=== PATIENT | female | born 1990 | race Caucasian/White ===

== ENCOUNTER → 2018-05-12 17:46 | Outpatient (CLI) | payer OTHER, SELFPAY ==
[2018-05-12 17:49] LABS: Mucous, Urine 0 SEEN /hpf (<or=2+)
[2018-05-12 19:45] LABS: Color, Urine Yellow (Yellow); Glucose, Dipstick Normal (Normal); Ketone-Dipstick Negative (Negative); Leukocyte Esterase-Dipstick 25 /ul (Negative); Nitrite-Dipstick Negative (Negative); Occult Blood-Urine 10 /ul (Negative); Protein-Dipstick Negative (Negative); Urine Bilirubin Dipstick Negative (Negative); Urine Clarity Cloudy (Clear); Urine Urobilinogen Normal (Normal)
[2018-05-12 19:46] LABS: Bacteria RARE /hpf (None Seen); Red Blood Cells-Urine 0-5 SEEN /hpf (0-5); Squamous Epithelial Cells - UA 0-5 SEEN /hpf (5-10); White Blood Cells 5-10 SEEN /hpf (0-5)
== END ==
PROVIDERS: Visit Provider Nurse Practitioner Adult Health
DX: N30.20 Other chronic cystitis without hematuria (principal)
CPT/HCPCS: 81001; 87086; 87088

== ENCOUNTER → 2018-05-17 10:31 | Outpatient (CLI) | payer OTHER, SELFPAY ==
--- NOTE | 2018-05-17 10:50 | RAD_ITS ---
CLINICAL HISTORY: Female, 28 years old. Recurrent UTI. Microhematuria. Urosepsis. PROCEDURE: Retrograde cystogram. FLUOROSCOPY TIME (if supplied): (1:01) minutes/seconds 250 mL of contrast installed into the bladder in a retrograde fashion through Hoover catheter. The radiologist installed the contrast into the bladder. TECHNIQUE: (All elements of maximal sterile barrier technique followed, including US elements as applicable) Contrast was introduced through the Hoover catheter. The bladder was opacified. During voiding, there is evidence of a bilateral vesicoureteral reflux to the distal one third of the ureters bilaterally. RAD/Voiding Urethrocystography IMPRESSION: Bilateral vesicoureteral reflux to the distal third of the ureters bilaterally. Electronically Signed: Christopher Perez MD at 8:37 EDT Tel [phone], Service support ,
--- NOTE | 2018-05-17 15:20 | NURSING ---
1100 16 maori crisostomo inserted for cystogram, urine obtained, sterile technique used, patient tolerated well, removed after the test was complete
== END ==
PROVIDERS: Family Provider Nurse Practitioner Primary Care; PCP Nurse Practitioner Primary Care; Visit Provider Nurse Practitioner Adult Health
DX: N39.0 Urinary tract infection, site not specified (principal); Z87.440 Personal history of urinary (tract) infections; R31.29 Other microscopic hematuria
CPT/HCPCS: 51600; 74430; 74455; Q9965

== ENCOUNTER → 2018-05-20 15:04 | Outpatient (CLI) | payer OTHER, SELFPAY ==
--- NOTE | 2018-05-20 15:07 | CT_ITS ---
STUDY: CT ABDOMEN AND PELVIS WITH AND WITHOUT CONTRAST REASON FOR EXAM: Female, 28 years old. Recurrent UTIs RADIATION DOSAGE (If Supplied By Facility): CTDIvol = ( 13.6 ) mGy, DLP = ( 1288.56 ) mGycm TECHNIQUE: Transaxial images were obtained from the dome of the diaphragm to the symphysis pubis without oral contrast. 100 ml of Isovue 300 contrast was administered. Sagittal and coronal images were reconstructed. Individualized dose optimization techniques were used for this CT. COMPARISON: None. FINDINGS: The visualized lung bases are unremarkable. The visualized portions of the heart are within normal limits. There is an enhancing lesion with rapid washout of the posterior right hepatic lobe measuring 2.9 x 2.8 cm consistent with an hemangioma. The gallbladder is contracted. Normal spleen. Normal pancreas. Normal bilateral adrenal glands. Normal right kidney. Normal left kidney. Normal visualized stomach. Normal small intestine. Normal colon. The appendix is visualized and appears normal. Normal abdominal aorta. Normal inferior vena cava. Normal retroperitoneum. Normal urinary bladder. The uterus and adnexal structures are unremarkable. There is a small umbilical hernia containing fat. Normal osseous structures. CT/CT Abd/Pelvis W/WO Contrast IMPRESSION: 1. Enhancing lesion with rapid washout of the posterior right hepatic lobe measuring 2.9 x 2.8 cm consistent with an hemangioma. 2. Small fat-containing umbilical hernia. 3. The kidneys, ureters, and bladder appear within normal limits. Electronically Signed: Crow Fields MD at 16:23 EDT , Service support ,
== END ==
PROVIDERS: Family Provider Nurse Practitioner Primary Care; PCP Nurse Practitioner Primary Care; Visit Provider Nurse Practitioner Adult Health
DX: N39.0 Urinary tract infection, site not specified (principal); R31.29 Other microscopic hematuria
CPT/HCPCS: 74178; Q9967

== ENCOUNTER 2020-03-01 11:20 | Inpatient (IN) | payer OTHER, SELFPAY ==
[2020-03-01] VITALS (55 sets, daily range): BP systolic 100–155; BP diastolic 56–87; PULSE 88–123; TEMP 35.9–36.9; O2SAT 88–100; BMI 36.4
[2020-03-01] MEDS: Lactated Ringers 1,000 ML 50 ML IV (11:50)
[2020-03-01 12:15] LABS: Absolute Lymphocyte Count 2.22 X10^3/uL (0.83-4.51); Absolute Neutrophil Count 10.4 X10^3/uL (2.0-7.7); Basophil# 0.03 X10^3/uL; Basophil% 0.2 % (0-1); Eosinophils% 0.7 % (0-5); Hematocrit 36.7 % (37-47); Hemoglobin 12.2 g/dL (12.0-15.0); Lymphocyte # 2.22 X10^3/ul (4.0); Mean Corp Hgb Conc 33.2 g/dL (32-36); Mean Corpuscular Hgb 27.2 pg (27.0-32.0); Mean Corpuscular Volume 81.7 fL (81-99); Monocyte% 6.5 % (0-10); NRBC Flagged by Analyzer 0 % (0-5); Neutrophil # 10.44 X10^3/uL (2.7-7.7); Neutrophil % 75.3 % (47-70); Platelet Count 293 K/mm3 (150-450); RBC Distribution Width CV 14.4 % (11.6-14.6); RBC Distribution Width SD 42.3 fl (35.1-43.9); Red Blood Count 4.49 M/mm3 (4.2-5.4); White Blood Count 13.9 K/mm3 (4.4-11.0)
[2020-03-01] MEDS: Oxytocin 30 units/NS 500 ml 30 UNITS/500 ML IV.SOLN IV (13:56)
--- NOTE | 2020-03-01 14:39 | PCM.HP.OB ---
- Problem List (1) 37 weeks gestation of Status: Acute (2) PROM (premature rupture of membranes) Status: Acute Qualifiers: PROM onset of labor timing: unspecified duration between rupture of membranes and onset of labor PROM gestational age: full term Qualified Code(s): O42.92 - Full-term premature rupture of membranes, unspecified as to length of time between rupture and onset of labor History Date of Admission: 03/01/20 Final JOSSELINE: 03/22/20 Gestational age: 37 Weeks and 0 Days History of this : This is a 30 year-old, G [1], P [], at 37 weeks gestational age sent from the office with PROM, grossly ruptured. She reports intermittent cramping. +FM. Medical History: Medical History (Last Updated 03/01/20 @ 14:[address] Eliane Meza MD) Reflux, vesicoureteral N13.70 kidney Sepsis secondary to UTI A41.9, N39.0 2016, 2017 Surgical History: Surgical History (Last Updated 03/01/20 @ 14:[address] Eliane Meza MD) Hx of tonsillectomy Z90.89 [place] teeth removed K08.409 Allergies Cephalosporins Allergy (Verified 03/01/20 11:47) Hives Tolerates penicillins Home Medications: Home Medications Vits [Prenatabs FA] 1 tab PO DAILY 03/01/20 Smoking Status: Never smoker Alcohol: None Number of Fetus(es): 1 NST - FHR Rate Baby A Baseline: 130 Variability:: Moderate Accelerations:: 15 x 15 Decelerations:: None NST Reactive:: Yes FHR Category:: Category I Uterine Activity:: 0 History Past Pregnancies: Past Pregnancies Delivery Date Name GA/ Weeks Outcome Route Wt Infant Sex Labor Length Anesthesia Delivery Location Provider FOB Labs: Mom's Problem List Problem Status Onset Code 37 weeks gestation of Acute Z3A.37 PROM (premature rupture of membranes) Acute O42.90 Mom's Labs & Results 03/01/20 03/01/20 03/01/20 11:55 11:55 13:44 WBC 13.9 H RBC 4.49 Hgb 12.2 Hct 36.7 L MCV 81.7 MCH 27.2 MCHC 33.2 RDW Std Deviation 42.3 RDW Coeff of Antoinette 14.4 Plt Count 293 MPV 11.0 Immature Gran % (Auto) 1.300 H Neut % (Auto) 75.3 H Lymph % (Auto) 16.0 L [place] % (Auto) 6.5 Eos % (Auto) 0.7 Baso % (Auto) 0.2 Absolute Neuts (auto) 10.4 H Absolute Lymphs (auto) 2.22 Nucleated RBC % 0 Group B Strep DNA Pending Specimen Comment Pending Blood Type Pending Antibody Screen Pending Course Did the patient receive Yes care? Labs Blood Type: O RH: POSITIVE RPR/VDRL/Syphilis Nonreactive Rubella status Immune HbSAg Negative Date Done: 08/16/19 Chlamydia Negative Gonorrhea Negative HIV/AIDS Non-Reactive Group B Strep: Collected on Admission Other Lab Procedures/Results/ gbs pending done 02/28/2020 Comments: Current Obstetrical History Gestational Diabetes No Incompetent Cervix No Infertility No IUGR No Macrosomia No Hypertension/Pre-eclampsia No Placenta Previa/Abruption No PTL/PROM No Uterine anomaly No Oligohydramnios No Polyhydramnios No Multiple gestation No Past Medical History Asthma No Diabetes No Hypertension Yes: no meds Heart disease No Mitral valve prolapse No Neurologic/Seizure disorder/ No Migraines Kidney disease No Liver disease No Varicosities No Clotting disorders/Hx of DVT No Thyroid Dysfunction No Other medical diseases No Psychiatric disorders No Major trauma No Abnormal PAP smear No Sleep apnea No Mammogram in the last 2 years No Maternal weight 9lb Social History Marital Status: Alleged father Rey Hx Smoking No Smoking Status Never smoker How long have you used no substances (years)? Expected Infant Delivery Method: Spontaneous Vaginal Number of Visits: 9 Physical Exam Vitals: Vital Signs Temp Pulse BP Pulse Ox 97.9 F 100 140/72 H 99 03/01/20 14:31 03/01/20 14:31 03/01/20 14:31 03/01/20 14:31 General: Alert, Oriented x3, Cooperative, No apparent distress HEENT: Atraumatic, Normocephalic Cardiovascular: Regular rate, Regular Rhythm Lungs: Normal air movement Abdomen: Soft, Non Tender, Non-Distended, Gravid Extremities:: No edema Neurological: Neuro grossly intact LOSS PREVENTION AUDITOR: Normal external genitalia Estimated gestational size: Appropriate for gestational size Presentation: Cephalic Cervix Dilation (cm): 4 Station: -3 Effacement (%): 60 - soft, midposition Assessment/Plan All Active Problems 37 weeks gestation of (Acute) PROM (premature rupture of membranes) (Acute) This is a 30 year-old, G [1], P [], at 37 weeks gestational age with spontaneous rupture of membranes, Cat I FHR -L&D consents signed and reviewed -Pitocin ordered - r/b/i reviewed -GBS cx pending - discussed risked based treatment vs. rapid testing. Reviewed rapid testing limitation and risk for early onset GBS and benefits of treatment. Rapid GBS sent. If negative will use risk based algorithm.
[2020-03-01] MEDS: Lactated Ringers 500 ML 999 ML IV (17:17)
[2020-03-01 17:37] LABS: Group B Strep DNA By PCR POSITIVE (Negative); Probe Check PASS
[2020-03-01] MEDS: fentaNYL-bupivacaine (epidural) 100 ML BAG EPIDURAL (18:33)
[2020-03-01] MEDS: Lactated Ringers 1,000 ML 200 ML IV (21:56)
[2020-03-01] MEDS: Ondansetron 4 MG/2 ML Vial IV (23:10)
[2020-03-02] VITALS (19 sets, daily range): BP systolic 114–140; BP diastolic 64–86; PULSE 90–121; RESP 12–18; TEMP 36.1–37.3; O2SAT 98
[2020-03-02] MEDS: Oxytocin 30 units/NS 500 ml 30 UNITS/500 ML IV.SOLN 334 UNITS IV (02:15)
--- NOTE | 2020-03-02 02:44 | PCM.OPRPT ---
Problem List (1) 37 weeks gestation of Status: Acute (2) PROM (premature rupture of membranes) Status: Acute Qualifiers: PROM onset of labor timing: unspecified duration between rupture of membranes and onset of labor PROM gestational age: full term Qualified Code(s): O42.92 - Full-term premature rupture of membranes, unspecified as to length of time between rupture and onset of labor Vaginal Delivery Maternal Presentation: Spontaneous Rupture of Membranes Method of Induction: Pitocin, - - augmentation Amniotic Membrane Rupture Type: Spontaneous at home Rupture of Membrane time: 03/01/20 0330h Amniotic Fluid Description: Clear Final JOSSELINE: 03/22/20 Final JOSSELINE Source: US <20 weeks Gestational age: 37 Weeks and 1 Days Date of Procedure: 03/02/20 Pre-Operative Diagnosis: 37 1/7wga, GBS positive Post-Operative Diagnosis: 37 1/7wga, GBS positive Surgery/ Procedure Performed: Spontaneous Vaginal Delivery Anesthesiologist: Janelle Park Type of Anesthesia: Epidural Description of Procedure: Patient was FD/+2 on my arrival approximately 0030h. She started pushing again. I offered her vacuum assistance given prolonged second stage and irregular contractions at approximately 0055h and patient declined. She continued pushing to deliver a male infant at 0213h. mouth and nares were bulb suctioned. The was placed on the maternal abdomen and further attended by nursery personnel. The cord was doubly clamped and cut at approximately 5 minutes of life. Cord blood specimen obtained. The placenta delivered and appeared intact on inspection. Second degree perineal laceration with vaginal extension was repaired with 3-0 Vicryl Rapide. The Crede maneuver was performed with expulsion of few small clots. There was good hemostasis. Sponge and need counts correct x 2. Presentation: Vertex Placental Delivery Description: Spontaneous Placenta Disposition: [facility] Cord Vessel Description: 3 Vessels Nuchal Cord Compression: Without compression Cord Entanglement: None Drain: Hoover to straight drain Estimated Blood Loss: 250 ml Infant A gender: Male (1 minute): 8 (5 minute): 9 Episiotomy Description: None Laceration: Midline, Perineal Extension/lac, 2nd degree Medications given after delivery: IV Pitocin Complications: None
--- NOTE | 2020-03-02 23:20 | NURSING ---
Report given to Deja FORREST, taking over care of pt and .
[2020-03-03] VITALS (9 sets, daily range): BP systolic 110–136; BP diastolic 65–88; PULSE 88–107; RESP 14–17; TEMP 36–36.4
--- NOTE | 2020-03-03 09:29 | DCINST_ITS ---
Discharge Diet: No Restrictions Discharge Activity: Return to Normal Activity May resume sexual activity in: 4-6 weeks Additional Instructions: If you experience any of the following, contact your healthcare provider. * Bleeding that soaks a pad every hour for 2 hours * Fever 100.4 or higher * Unrelieved incision or abdominal pain * Swelling, redness, discharge or bleeding from your incision or episiotomy site * Your incision begins to separate * Problems urinating (including inability to urinate or burning while urinating). * Visual changes * Severe headache * Flu-like symptoms * Pain or redness in one of both of your breasts * Pain, warmth, tenderness or swelling in your legs, especially the calf area * Frequent nausea and vomiting * Symptoms of depression or anxiety If you experience any of the following, call 911 or go to the nearest Emergency Room. * Chest pain * Problems breathing * Seizure activity * Partial or complete paralysis of a body part, slurred speech, weakness or drooping of the face, or a sudden inability to walk or hold your balance Allergies/Adverse Reactions: Allergies Cephalosporins Allergy (Verified 03/01/20 11:47) Hives Medications to take at Discharge Vits [Prenatabs FA] 1 tab PO DAILY 03/01/20 Please Follow Up With: Richmond Mccarty MD - Telehealth visit When: 2-3 weeks Please Follow Up With: Richmond Mccarty MD When: 6 weeks Primary Care Physician: Natacha Han NP-C [Primary Care Provider] - Test Results: Test results from this visit will be discussed in further detail at your follow- up appointment, if applicable.
--- NOTE | 2020-03-03 09:29 | PCM.DCVAG ---
Discharge Diet: No Restrictions Discharge Activity: Return to Normal Activity May resume sexual activity in: 4-6 weeks Additional Instructions: If you experience any of the following, contact your healthcare provider. Bleeding that soaks a pad every hour for 2 hours Fever 100.4 or higher Unrelieved incision or abdominal pain Swelling, redness, discharge or bleeding from your incision or episiotomy site Your incision begins to separate Problems urinating (including inability to urinate or burning while urinating). Visual changes Severe headache Flu-like symptoms Pain or redness in one of both of your breasts Pain, warmth, tenderness or swelling in your legs, especially the calf area Frequent nausea and vomiting Symptoms of depression or anxiety If you experience any of the following, call 911 or go to the nearest Emergency Room. Chest pain Problems breathing Seizure activity Partial or complete paralysis of a body part, slurred speech, weakness or drooping of the face, or a sudden inability to walk or hold your balance Allergies/Adverse Reactions: Allergies Cephalosporins Allergy (Verified 03/01/20 11:47) Hives Medications to take at Discharge Vits [Prenatabs FA] 1 tab PO DAILY 03/01/20 Please Follow Up With: Richmond Mccarty MD - Telehealth visit When: 2-3 weeks Please Follow Up With: Richmond Mccarty MD When: 6 weeks Primary Care Physician: Natacha Han NP-C [Primary Care Provider] - Test Results: Test results from this visit will be discussed in further detail at your follow-up appointment, if applicable.
--- NOTE | 2020-03-03 10:20 | PCM.PN.OB ---
Patient Problems: Active and Suspected Problems (Last Updated 03/01/20 @ 14:[address] Eliane Meza MD) 37 weeks gestation of (Acute) PROM (premature rupture of membranes) (Acute) Subjective: She is sore, but reports it is manageable. Has not needed pain medication. OOB, voiding without difficulty. Denies heavy lochia. with latching difficulty with tongue tie. Objective: AVSS - Physical Exam Vitals/I&O's: Vital Signs Temp Pulse Resp BP Pulse Ox 97.4 F L 97 14 125/76 H 98 03/03/20 09:04 03/03/20 09:05 03/03/20 09:04 03/03/20 09:05 03/02/20 20:18 Oxygen Delivery Method Room Air Weight: 96.3 kg Body Mass Index (BMI) 36.4 Intake and Output for Last 24 Hours 03/01/20 03/02/20 03/03/20 23:59 23:59 23:59 Intake Total 1720.73 / 1970.73 1890.87 / 1890.87 Output Total 1250 / 1250 Balance 1720.73 / 1370.73 640.87 / 640.87 General: Alert, Oriented x3, Cooperative, No apparent distress HEENT: Atraumatic, Normocephalic Lungs: Clear to auscultation, Normal air movement Cardiovascular: Regular rate, Regular Rhythm, Normal S1, Normal S2 Abdomen: Soft, Non Tender, Non-Distended, - - Fundus firm and nontender Extremities: No edema, No Calf Tenderness Neurological: Neuro grossly intact Psych/Mental Status: Normal Affect, Appropriate, Alert and oriented to time, place, person, mood and affect Current Medications Acetaminophen (Tylenol) 1,000 mg PO Q8H PRN PRN PRN Reason: Pain Score 1-3/10 Bisacodyl (Dulcolax) 10 mg RECTAL UD PRN PRN Reason: If no BM Dibucaine (Dibucaine) 1 applic TOPICAL TID PRN PRN; Protocol PRN Reason: Discomfort Hydrocortisone (Hytone) 1 applic TOPICAL TID PRN PRN; Protocol PRN Reason: Discomfort Ibuprofen (Motrin) 600 mg PO Q6H PRN PRN PRN Reason: Pain Score 1-3/10 Methylergonovine Maleate (Methergine) 0.2 mg IM X1 PRN PRN Reason: Excess bleeding/uterine atony Ondansetron HCl (Zofran) 4 mg IV Q4H PRN PRN PRN Reason: NAUSEA Last Admin: 03/01/20 23:10 Dose: 4 mg Documented by: Senna/Docusate Sodium (Senokot-S, Tanya-Colace) 1 - 2 tablet PO DAILY PRN PRN PRN Reason: Constipation Simethicone (Mylicon) 80 mg PO PCHS PRN PRN Reason: Indigestion/Stomach pain Sodium Chloride () 5 - 15 ml IV UD PRN PRN Reason: SALINE FLUSH Medical Necessity - Tobacco Use Smoking Status: Never smoker Assessment/Plan All Active Problems (Last Updated 03/01/20 @ 14:[address] Eliane Meza MD) 37 weeks gestation of (Acute) PROM (premature rupture of membranes) (Acute) This is a 30 year-old, G 1 P1 PPD#1 s/p doing well. -Rh positive - -Male infant - for circ -Consider d/c home later today if infant is cleared
[2020-03-04] VITALS: BP 131/95; PULSE 98; RESP 16; TEMP 36.3
[2020-03-04 00:02] VITALS: BP 131/95; PULSE 98
[2020-03-04 04:15] VITALS: BP 123/70; PULSE 97; RESP 16; TEMP 36.3
[2020-03-04 04:17] VITALS: BP 123/70; PULSE 97
[2020-03-04 08:19] VITALS: BP 131/78; PULSE 87
[2020-03-04 08:21] VITALS: BP 131/78; PULSE 87; RESP 16; TEMP 36.4
--- NOTE | 2020-03-04 08:41 | PCM.PN.OB ---
Patient Problems: Active and Suspected Problems (Last Updated 03/01/20 @ 14:[address] Eliane Meza MD) 37 weeks gestation of (Acute) PROM (premature rupture of membranes) (Acute) Subjective: Stayed overnight due to feeding difficulty. Jamia reports latch improved. She feels well today, but notes mild ankle swelling. Denies heavy lochia, pain. Objective: AVSS - Physical Exam Vitals/I&O's: Vital Signs Temp Pulse Resp BP Pulse Ox 97.6 F L 87 16 131/78 H 98 03/04/20 08:21 03/04/20 08:21 03/04/20 08:21 03/04/20 08:21 03/02/20 20:18 Oxygen Delivery Method Room Air Weight: 96.3 kg Body Mass Index (BMI) 36.4 Intake and Output for Last 24 Hours 03/02/20 03/03/20 03/04/20 23:59 23:59 23:59 Intake Total 1890.87 / 1890.87 Output Total 1250 / 1250 Balance 640.87 / 640.87 General: Alert, Oriented x3, Cooperative, No apparent distress HEENT: Atraumatic, Normocephalic Lungs: Normal air movement Abdomen: Soft, Non Tender, Non-Distended, - - Fundus firm and nontender Extremities: No Calf Tenderness, - - trace LE edema Neurological: Neuro grossly intact Psych/Mental Status: Normal Affect, Appropriate, Alert and oriented to time, place, person, mood and affect Current Medications Acetaminophen (Tylenol) 1,000 mg PO Q8H PRN PRN PRN Reason: Pain Score 1-3/10 Bisacodyl (Dulcolax) 10 mg RECTAL UD PRN PRN Reason: If no BM Dibucaine (Dibucaine) 1 applic TOPICAL TID PRN PRN; Protocol PRN Reason: Discomfort Hydrocortisone (Hytone) 1 applic TOPICAL TID PRN PRN; Protocol PRN Reason: Discomfort Ibuprofen (Motrin) 600 mg PO Q6H PRN PRN PRN Reason: Pain Score 1-3/10 Methylergonovine Maleate (Methergine) 0.2 mg IM X1 PRN PRN Reason: Excess bleeding/uterine atony Ondansetron HCl (Zofran) 4 mg IV Q4H PRN PRN PRN Reason: NAUSEA Last Admin: 03/01/20 23:10 Dose: 4 mg Documented by: Senna/Docusate Sodium (Senokot-S, Tanya-Colace) 1 - 2 tablet PO DAILY PRN PRN PRN Reason: Constipation Simethicone (Mylicon) 80 mg PO PCHS PRN PRN Reason: Indigestion/Stomach pain Sodium Chloride () 5 - 15 ml IV UD PRN PRN Reason: SALINE FLUSH Medical Necessity - Tobacco Use Smoking Status: Never smoker Assessment/Plan All Active Problems (Last Updated 03/01/20 @ 14:[address] Eliane Meza MD) 37 weeks gestation of (Acute) PROM (premature rupture of membranes) (Acute) This is a 30 year-old, G 1 P1 PPD#2 s/p doing well. -Rh positive - -d/c home today
== END 2020-03-04 11:20 | disposition home or self-care (01) | DRG 807 ==
PROVIDERS: Admitting Provider Obstetrics & Gynecology; PCP Nurse Practitioner Primary Care; Referring Provider Obstetrics & Gynecology; Visit Provider Obstetrics & Gynecology
DX: O42.92 Full-term premature rupture of membranes, unspecified as to length of time between rupture and onset of labor (principal); Z37.0 Single live birth; O99.824 Streptococcus B carrier state complicating childbirth; Z3A.37 37 weeks gestation of pregnancy; O16.4 Unspecified maternal hypertension, complicating childbirth; O70.1 Second degree perineal laceration during delivery
CPT/HCPCS: 59025; 59050; 85025; 86850; 86900; 86901; 87653; 99218; J7120; G0378; J2405

== ENCOUNTER 2023-03-11 10:25 | Outpatient (CLI) | payer OTHER, SELFPAY ==
[2023-03-11 11:04] VITALS: PULSE 100; O2SAT 98
[2023-03-11 11:06] VITALS: TEMP 36.3
[2023-03-11 11:07] VITALS: BP 134/87; PULSE 95
[2023-03-11 11:10] VITALS: BMI 36.6
[2023-03-11 11:23] VITALS: BP 135/84; PULSE 96
[2023-03-11 11:35] LABS: Mucous, Urine 0 SEEN /hpf (<or=2+); Red Blood Cells-Urine 0 SEEN /hpf (0-5)
[2023-03-11 11:37] LABS: Color, Urine Yellow (Yellow); Glucose, Dipstick Normal (Normal); Hematocrit 37.7 % (37-47); Hemoglobin 12.3 g/dL (12.0-15.0); Ketone-Dipstick Negative (Negative); Leukocyte Esterase-Dipstick 500 /ul (Negative); Mean Corp Hgb Conc 32.6 g/dL (32-36); Mean Corpuscular Hgb 27.2 pg (27.0-32.0); Mean Corpuscular Volume 83.2 fL (81-99); Mean Platelet Vol. 10.9 fl (6.2-12.0); Nitrite-Dipstick Negative (Negative); Occult Blood-Urine Negative /ul (Negative); Platelet Count 302 K/mm3 (150-450); Protein-Dipstick 15 mg/dl (Negative); RBC Distribution Width CV 14.5 % (11.6-14.6); RBC Distribution Width SD 43.5 fl (35.1-43.9); Red Blood Count 4.53 M/mm3 (4.2-5.4); Urine Bilirubin Dipstick Negative (Negative); Urine Clarity Sl. Cloudy (Clear); Urine Urobilinogen Normal (Normal); Urine pH 6.5 (5.0 - 8.0); White Blood Count 11.7 K/mm3 (4.4-11.0)
[2023-03-11 11:38] VITALS: BP 127/78; PULSE 91
[2023-03-11 11:49] LABS: Bacteria 4+ /hpf (None Seen); Squamous Epithelial Cells - UA 5-10 SEEN /hpf (5-10); White Blood Cells 5-10 SEEN /hpf (0-5)
[2023-03-11 11:51] LABS: Anion Gap 4 (5-15); BUN 9 mg/dL (7-18); BUN/Creat Ratio 13.7 RATIO (10-20); Calcium,Total 8.7 mg/dL (8.5-10.1); Chloride 109 mmol/L (98-107); Creatinine, Serum 0.66 mg/dL (0.55-1.02); EST Glomerular Filtration Rate 111 mL/min (>60); Est Glom Filt Rate - Afr Amer 134 mL/min (>60); Estimated Creatinine Clearance 105.67 ml/min; Glucose 95 mg/dL (74-106); Potassium 3.8 mmol/L (3.5-5.1); Sodium Level 136 mmol/L (136-145)
[2023-03-11 11:52] LABS: AST(SGOT) 14 U/L (15-37); Alanine Aminotransfer ALT/SGPT 14 U/L (13-56); Creatinine, Serum 0.66 mg/dL (0.55-1.02); EST Glomerular Filtration Rate 110 mL/min (>60); Est Glom Filt Rate - Afr Amer 133 mL/min (>60); Estimated Creatinine Clearance 105.67 ml/min; Uric Acid 3.7 mg/dL (2.6-6.0)
[2023-03-11 11:53] VITALS: BP 123/74; PULSE 96
[2023-03-11 11:53] LABS: LDH 162 U/L (84-246)
[2023-03-11 11:55] LABS: Protein, Urine (Random) 13.3 mg/dL (<11.9); Protein:Creat Ratio 206 mg/g CRE (0-200)
--- NOTE | 2023-03-12 08:21 | OB.TRI.HP_ITS ---
HPI - General General Date of Service: 03/11/23 HPI Narrative KEYA REYES, is a 33 F who presents with elevated blood pressures in office [facility] Medical History (Updated 03/12/23 @ 08:[address] Gerardo Watson MD) Reflux, vesicoureteral Sepsis secondary to UTI Home Medications vits,calcium no.78-iron fumarate-folic acid 29 mg-1 mg tablet 1 tab PO DAILY Check with primary doctor 03/01/20 [History Last Taken 03/11/23 08:00] blood pressure test kit-wrist ##1 03/03/20 [Rx Last Taken Unknown] Allergy/AdvReac Type Severity Reaction Status Date / Time Cephalosporins Allergy Hives Verified 03/11/23 11:35 Surgical History (Updated 03/01/20 @ 14:[address] Eliane Aponte MD) Hx of tonsillectomy [place] teeth removed Social History Smoking Status: Never smoker History Elective abortions Hx Para 0 Spontaneous abortions Hx # Term Pregnancies Ectopic pregnancies Hx # Pregnancies Multiple births # of living children NST FHR Rate Baby A Baseline: 120 Variability:: Moderate Accelerations:: 15 x 15 Decelerations:: None NST Reactive:: Yes Uterine Activity:: quiet Assessment & Plan (1) : PLAN: Patient sent to triage from office with elevated blood pressures. Asymptomatic. Blood pressures in triage are within normal limits. Reviewed labs with nursing, within normal limits. Patient has blood pressure cuff at home, discussed with nursing to instruct patient to take at home blood pressures with parameters. Okay to discharge home with follow-up scheduled appointments
== END 2023-03-11 12:15 | disposition home or self-care (01) ==
LOC: WPOUT 10:47 → WP 10:48
PROVIDERS: PCP Nurse Practitioner Primary Care; Referring Provider Obstetrics & Gynecology; Visit Provider Obstetrics & Gynecology
DX: O16.9 Unspecified maternal hypertension, unspecified trimester (principal); Z3A.00 Weeks of gestation of pregnancy not specified
CPT/HCPCS: 36415; 59025; 59050; 80048; 81001; 82565; 82570; 83615; 84156; 84450; 84460; 84550; 85027; 86850; 86900; 86901

== ENCOUNTER → 2023-03-25 | Outpatient (CLI) | payer OTHER, SELFPAY ==
[2023-03-25 12:21] LABS: Syphilis Antibodies Non-reactive
== END | disposition home or self-care (01) ==
LOC: WOBLAB 10:59
PROVIDERS: PCP Nurse Practitioner Primary Care; Visit Provider Obstetrics & Gynecology
DX: Z34.83 Encounter for supervision of other normal pregnancy, third trimester (principal); Z36.85 Encounter for antenatal screening for Streptococcus B
CPT/HCPCS: 36415; 86780; 87081

== ENCOUNTER → 2023-04-08 | Outpatient (CLI) | payer OTHER, SELFPAY ==
[2023-04-08 16:56] LABS: Hematocrit 40.3 % (37-47); Hemoglobin 12.7 g/dL (12.0-15.0); Mean Corp Hgb Conc 31.5 g/dL (32-36); Mean Corpuscular Hgb 27.1 pg (27.0-32.0); Mean Corpuscular Volume 85.9 fL (81-99); Mean Platelet Vol. 12.3 fl (6.2-12.0); Platelet Count 269 K/mm3 (150-450); RBC Distribution Width SD 46.6 fl (35.1-43.9); Red Blood Count 4.69 M/mm3 (4.2-5.4); White Blood Count 7.9 K/mm3 (4.4-11.0)
[2023-04-08 17:11] LABS: Protein, Urine (Random) 46.6 mg/dL (<11.9); Protein:Creat Ratio 206 mg/g CRE (0-200)
[2023-04-08 17:50] LABS: ALB/GLOB Ratio 0.5 RATIO (0.9-2.4); AST(SGOT) 14 U/L (15-37); Alanine Aminotransfer ALT/SGPT 18 U/L (13-56); Albumin, Serum 2.4 g/dL (3.2-5.0); Alkaline Phosphatase 128 U/L (45-117); Anion Gap 9 (5-15); BUN 11 mg/dL (7-18); BUN/Creat Ratio 13.9 RATIO (10-20); Calcium,Total 8.7 mg/dL (8.5-10.1); Chloride 107 mmol/L (98-107); Creatinine, Serum 0.79 mg/dL (0.55-1.02); EST Glomerular Filtration Rate 89 mL/min (>60); Est Glom Filt Rate - Afr Amer 108 mL/min (>60); Globulin 4.6 g/dL (2.2-4.2); Glucose 124 mg/dL (74-106); LDH 154 U/L (84-246); Potassium 3.5 mmol/L (3.5-5.1); Sodium Level 138 mmol/L (136-145)
== END | disposition home or self-care (01) ==
LOC: WOBLAB 15:58
PROVIDERS: PCP Nurse Practitioner Primary Care; Visit Provider Obstetrics & Gynecology
DX: Z34.83 Encounter for supervision of other normal pregnancy, third trimester (principal)
CPT/HCPCS: 36415; 80053; 82570; 83615; 84156; 85027; 87086; 87088

== ENCOUNTER 2023-04-20 03:12 | Inpatient (IN) | payer OTHER, SELFPAY ==
[2023-04-20] VITALS (44 sets, daily range): BP systolic 129–155; BP diastolic 67–90; PULSE 8–210; RESP 16; TEMP 36.2–36.8; O2SAT 80–100; BMI 37.5
[2023-04-20 03:33] LABS: ROM Internal Control Test YES-OK TO RESULT pt. (Internal QC)
[2023-04-20 03:34] LABS: ROM Patient Test POSITIVE (Negative)
[2023-04-20] MEDS: LACTATED RINGERS 500 ML 999 ML IV (03:35)
[2023-04-20 03:42] LABS: Absolute Lymphocyte Count 4.75 X10^3/uL (0.83-4.51); Absolute Neutrophil Count 6.9 X10^3/uL (2.0-7.7); Basophil# 0.05 X10^3/uL; Basophil% 0.4 % (0-1); Eosinophil# 0.11 X10^3/uL; Eosinophils% 0.9 % (0-5); Hematocrit 39.3 % (37-47); Hemoglobin 12.7 g/dL (12.0-15.0); Lymphocyte # 4.75 X10^3/ul (0.83-4.51); Lymphocyte % 36.9 % (19-41); Mean Corp Hgb Conc 32.3 g/dL (32-36); Mean Corpuscular Hgb 27.6 pg (27.0-32.0); Mean Corpuscular Volume 85.4 fL (81-99); Mean Platelet Vol. 11.8 fl (6.2-12.0); Monocyte# 0.94 X10^3/uL; Monocyte% 7.3 % (0-10); NRBC Flagged by Analyzer 0 % (0-5); Neutrophil # 6.93 X10^3/uL (2.7-7.7); Neutrophil % 53.9 % (47-70); Platelet Count 268 K/mm3 (150-450); RBC Distribution Width CV 14.6 % (11.6-14.6); RBC Distribution Width SD 45.5 fl (35.1-43.9); White Blood Count 12.9 K/mm3 (4.4-11.0)
[2023-04-20] MEDS: Lactated Ringers 1,000 ML 50 ML IV (04:06)
[2023-04-20 04:08] LABS: ALB/GLOB Ratio 0.6 RATIO (0.9-2.4); AST(SGOT) 14 U/L (15-37); Alanine Aminotransfer ALT/SGPT 16 U/L (13-56); Albumin, Serum 2.4 g/dL (3.2-5.0); Alkaline Phosphatase 123 U/L (45-117); Anion Gap 11 (5-15); BUN 15 mg/dL (7-18); BUN/Creat Ratio 19.3 RATIO (10-20); Calcium,Total 8.5 mg/dL (8.5-10.1); Chloride 109 mmol/L (98-107); Creatinine, Serum 0.78 mg/dL (0.55-1.02); EST Glomerular Filtration Rate 91 mL/min (>60); Est Glom Filt Rate - Afr Amer 111 mL/min (>60); Estimated Creatinine Clearance 89.41 ml/min; Globulin 4.2 g/dL (2.2-4.2); Glucose 102 mg/dL (74-106); LDH 151 U/L (84-246); Potassium 3.8 mmol/L (3.5-5.1); Protein, Total 6.6 g/dL (6.4-8.2); Sodium Level 139 mmol/L (136-145)
[2023-04-20] MEDS: Oxytocin 10 UNITS/ML Vial IM (04:33)
[2023-04-20] MEDS: Oxytocin 15 Units/NS 250ml 15 UNITS/250 ML IV.SOLN 83 UNITS IV (04:33)
[2023-04-20] MEDS: Lidocaine 1% (20 ml mdv) 20 ML Vial INFILT (04:53)
--- NOTE | 2023-04-20 04:55 | HP.PCM.OB_ITS ---
History and Physical Date of Admission: 04/20/23 HPI: 33-year-old G2, P1 at 40/3 weeks, JOSSELINE 04/17/2023 by LMP, admitted for labor. Patient reports rupture membranes on Wednesday afternoon. Contractions started last evening. Denies vaginal bleeding. Reports movement. Denies headache or vision changes, chest pain or shortness of breath, no vomiting diarrhea constipation, fevers or chills. 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 Class I obesity Surgical history: 1. Tonsillectomy Medications: vitamin Family history: Denies history of blood clots or bleeding disorders. Social history: Denies tobacco, alcohol, drug use Allergies: Cephalosporins Review of system: Negative otherwise stated above Physical exam Vital signs:Blood pressure 133/84, pulse 88, oxygen saturation 100% on room air General: No acute distress HEENT: Normocephalic/atraumatic, PERRLA Cardiorespiratory: No increased effort Abdomen: Soft, nontender, gravid Extremities: Minimal edema Neurologic: Cranial nerves II through XII grossly intact, no focal deficits Musculoskeletal: Moves all extremities Cervical exam: Per RN 7 cm heart rate:130/mod martha/+accel/+intermittent variable decel [place]: q3-4min Assessment/plan: 33-year-old G2, P1 at 40/3 weeks, JOSSELINE 04/17/2023 by LMP, admitted for labor. complicated by: Class I obesity, has been monitoring blood pressures with normal at home, varicella nonimmune. ?Admit to labor and delivery early ? Patient reports rupture membranes since 04/18. ROM positive. Prolonged rupture of membranes. ? Varicella immune, for varicella vaccine ? GBS negative ? Class I obesity ?Blood pressure slightly elevated on arrival. Preeclampsia labs sent. CMP within normal limits. Urine protein creatinine ratio is pending. ? Expectant management
--- NOTE | 2023-04-20 05:02 | EX.PCM.OBRPT ---
Maternal Data Information Final JOSSELINE: 04/17/23 Vaginal Delivery Operative Information Date of Procedure: 04/20/23 Pre-Operative Diagnosis: [place] intrauterine at term, prolonged rupture membranes Post-Operative Diagnosis: [place] intrauterine at term, prolonged rupture membranes, precipitous delivery Surgery / Procedure Performed: Spontaneous Vaginal Delivery Type of Anesthesia: None Estimated Blood Loss: 300 cc Findings Description of Procedure: Precipitous vaginal delivery of viable female. Provider arrived to patient room immediately after time of delivery. Nuchal cord, loose. Baby to mom. Cord clamped cut. Spontaneous delivery of placenta. Second-degree laceration repaired in the usual fashion after injection of lidocaine. Hemostatic. A Gender: Female (1 minute): 9 (5 minute): 9 Complication Complications: None
[2023-04-20] MEDS: Carboprost Tromethamine 250 MCG/ML Ampul IM (05:15)
[2023-04-20] MEDS: Acetaminophen 500 MG Tablet 1000 MG PO (05:25)
[2023-04-20] MEDS: Loperamide 2 MG Capsule 4 MG PO (05:25)
[2023-04-20 05:32] LABS: Syphilis Antibodies Non-reactive
[2023-04-20] MEDS: miSOPROStol 200 MCG Tablet 1000 MCG RC (06:08)
[2023-04-20] MEDS: 0.9% Saline Lock 10 ML Syringe IV (07:41)
--- NOTE | 2023-04-20 10:01 | NURSING ---
urine Protein creatinine ratio sent- urine discolored red with vaginal lochia
[2023-04-20 10:20] LABS: Protein, Urine (Random) 41.7 mg/dL (<11.9); Protein:Creat Ratio 544 mg/g CRE (0-200)
--- NOTE | 2023-04-20 10:43 | NURSING ---
phone call placed to office left message on secure line notified of urine results and that the urine was red from vaginal lochia
[2023-04-21] MEDS: Acetaminophen 500 MG Tablet 1000 MG PO (00:12)
[2023-04-21 04:55] VITALS: BP 126/75; PULSE 83; RESP 16; TEMP 36.5; O2SAT 97
--- NOTE | 2023-04-21 06:48 | DCINST_ITS ---
Discharge Instructions Diet Discharge Diet: No restrictions Activity Discharge Activity: Return to Normal Activity, May Drive and May Shower May resume sexual activity in: 4-6 weeks Weight Bearing Status: Weight bearing as tolerated Dressing / Incision Call your doctor if your incision/area has: Continuous Slow Oozing and Foul Smelling Discharge Call your doctor if you observe: Fever of 101 or Higher, Shortness of breath and Chest pain Follow Up Care Please Follow Up With: Gerardo Watson MD When: 4 to 6 weeks Test Results: Test results from this visit will be discussed in further detail at your follow- up appointment, if applicable. Discharge Plan Admission Admit Date/Time: 04/20/23 03:12 Attending Provider: Maryjane Watson Primary Care Provider: Natacha Han NP Discharge Orders/Prescriptions Prescriptions: No Action vit,[id number] 1 TABLET tablet 1 tab PO DAILY (DME) blood pressure test kit-wrist 1 EACH kit 1 ea MC PRN Qty: 1 0RF Referrals / Follow Up: Natacha Han NP, STUDENT ACCOUNTS COORDINATOR-C [Primary Care Provider] - Disposition Discharge Orders: Discharge Patient (Routine); Ordered 04/21/23 Ordered By: Dr. Gerardo Watson
--- NOTE | 2023-04-21 06:49 | PN.OBGYN_ITS ---
Subjective Subjective No overnight complaints. Denies headache, vision change, chest pain, shortness of breath, nausea vomit, right upper quadrant pain. Objective Data Objective Data Vital Signs: Vital Signs Temp Pulse Resp BP Pulse Ox O2 Del Method 97.7 F L 83 16 126/75 H 97 Room Air 04/21/23 04:55 04/21/23 04:55 04/21/23 04:55 04/21/23 04:55 04/21/23 04:55 04/21/23 04:55 Oxygen Delivery Method Room Air Weight: 218 lb 14.704 oz Body Mass Index (BMI) 37.5 Intake & Output: Intake and Output for Last 24 Hours 04/19/23 04/20/23 04/21/23 23:59 23:59 23:59 Intake Total 840 / 840 Output Total 475 / 475 Balance 365 / 365 Lab / Micro Data Result Diagrams: 04/20/23 03:30 04/20/23 03:40 Labs: Laboratory Results - last 24 hr 04/20/23 09:15: U Random Total Protein 41.7 H, Urine Creatinine 76.60, Protei n/Creatinin Ratio 544 H Physical Exam Const alert, oriented x3, no apparent distress, average body habitus, healthy appearin g and well nourished HEENT normocephalic and moist oral mucous membranes Eyes PERRL Neck full ROM Resp normal respiratory effort, no retractions and no use of accessory muscles GI GI Narrative: Soft, nontender, uterus firm and below umbilicus Extremity normal to inspection and full ROM Neuro moves all extremities and no focal motor deficits Psych mental status grossly normal, affect normal, speech normal and activity/motor behavior normal Assessment & Plan (1) Vaginal delivery: PLAN: day 1. Breast-feeding. Pain well controlled. Elevated blood pressures initially on admission, labs overall within normal limits urine protein creatinine ratio slightly elevated this was collected could be elevated secondary to amniotic fluid. Patient asymptomatic has at home blood pressure cuff and will continue to take blood pressures at home parameters given. Okay to discharge home if okay with supervisor lace tearing
[2023-04-21 08:09] VITALS: BP 129/85; PULSE 87; RESP 15; O2SAT 97
[2023-04-21 08:10] VITALS: TEMP 36.9
== END 2023-04-21 11:30 | disposition home or self-care (01) | DRG 807 ==
LOC: WPOUT 03:13 → WP 03:13
PROVIDERS: Admitting Provider Student in an Organized Health Care Education/Training Program; PCP Nurse Practitioner Primary Care; Visit Provider Student in an Organized Health Care Education/Training Program
DX: O42.92 Full-term premature rupture of membranes, unspecified as to length of time between rupture and onset of labor (principal); Z37.0 Single live birth; E66.8 Other obesity; O62.3 Precipitate labor; O99.214 Obesity complicating childbirth; Z3A.40 40 weeks gestation of pregnancy; O70.1 Second degree perineal laceration during delivery; O48.0 Post-term pregnancy; O69.81X0 Labor and delivery complicated by cord around neck, without compression, not applicable or unspecified
CPT/HCPCS: 59025; 59050; 80053; 82570; 83615; 84112; 84156; 85025; 86703; 86762; 86780; 86803; 86850; 86900; 86901; 87340; 99221; J7120; A4216; G0378